=== PATIENT | male | born 1960 | race Asian ===

== ENCOUNTER 2020-01-20 18:50 | Inpatient (IN) | payer MEDICARE, OTHER ==
[~2020-01-20] VITALS: Ht 160 cm; Wt 58.1 kg
[2020-01-20 19:40] LABS: BASOPHILS % (AUTO) 0.5 % (0.0-2.0); EOSINOPHILS # (AUTO) 0.3 K/uL (0.0-0.7); HEMATOCRIT 40.8 % (36.7-47.1); HEMOGLOBIN 13.4 g/dL (12.5-16.3); LYMPHOCYTES # (AUTO) 1.3 K/uL (20.0-40.0); LYMPHOCYTES % (AUTO) 14.7 % (20.5-51.5); MEAN CORPUSCULAR HEMOGLOBIN 30.8 uug (23.8-33.4); MEAN CORPUSCULAR HGB CONC 33 g/dL (32.5-36.3); MEAN CORPUSCULAR VOLUME 93.6 fL (73.0-96.2); MONOCYTES # (AUTO) 0.7 K/uL (2.0-10.0); MONOCYTES % (AUTO) 7.8 % (0.0-11.0); NEUTROPHILS # (AUTO) 6.5 K/uL (1.8-8.9); PLATELET COUNT (AUTO) 281 K/uL (152-348); RED BLOOD CELL COUNT(AUTO) 4.36 MIL/uL (4.06-5.63); WHITE BLOOD COUNT (AUTO) 8.7 K/uL (3.6-10.2)
[2020-01-20 19:49] LABS: CARBON DIOXIDE 33 mmol/L (21-32); CHLORIDE 98 mmol/L (98-107); CREATININE 1.1 mg/dL (0.6-1.3); GLUCOSE 154 mg/dL (74-106); POTASSIUM 4.6 mmol/L (3.5-5.1); UREA NITROGEN, BLOOD 24 mg/dL (7-18)
[2020-01-20 19:54] LABS: ALANINE AMINOTRANSFERASE 15 U/L (16-63); ALKALINE PHOSPHATASE 164 U/L (50-136); ASPARTATE AMINOTRANSFERASE 20 U/L (15-37); BILIRUBIN,DIRECT 0.3 mg/dL (0.0-0.2); ETHANOL < 3 MG/DL (0-0)
--- NOTE | 2020-01-20 19:55 | NUR ---
Patient has been medically cleared by Dr. Solis
[2020-01-20 20:00] VITALS: BP 122/80
[2020-01-20 20:04] LABS: THYROID STIMULATING HORMONE 4.892 mIU/mL (0.358-3.740)
--- NOTE | 2020-01-20 20:30 | NUR ---
[place] [facility] [place] [facility]
[2020-01-20] MEDS ORDERED: MAG HYDROX/AL HYDROX/SIMETH 30 ML LIQUID UDC PO PRN (21:15)
[2020-01-20] MEDS ORDERED: ACETAMINOPHEN 325 MG TABLET PO PRN (21:15)
[2020-01-20] MEDS ORDERED: MAGNESIUM HYDROXIDE 30 ML LIQUID UDC PO PRN (21:15)
[2020-01-20] MEDS ORDERED: ZOLPIDEM 5 MG TABLET PO PRN (21:15)
[2020-01-20] MEDS: LORAZEPAM 0.5 MG TABLET PO PRN (22:05)
--- NOTE | 2020-01-20 22:15 | NUR ---
GPS ADMISSION NOTE: AT APPROX. 2019, ADMITTED 59 YEARS OLD MALE TO [facility] ON A 5150 HOLD FOR DTS. PER HOLD, PATIENT IS HOMELESS. HE WAS FOUND BY [facility] SECURITY TRESPASSING ON THE [facility] RED LINE. UPON INTERVIEW, HE STATED THAT HE IS EXPERIENCING SI WITH A PLAN TO JUMP INTO THE TRACKS AND BE HIT BY A TRAIN. PATIENT WAS THEN TAKEN TO [facility] WHERE HE WAS PUT ON HOLD, AND MEDICALLY CLEARED FOR ADMISSION TO A GEROPSYCH UNIT. UPON ADMISSION, PATIENT NOTED A/O X 3, ABLE TO AMBULATE WITH STEADY GAIT AND ABLE TO VERBALIZED FEELINGS, PATIENT WAS ABLE TO SIGN HIS ADMISSION PAPERS. UPON INTERVIEW, PATIENT STATED THAT HE HAS BEEN FEELING DEPRESSED D/T LOSING HIS [address]ART[address], BEING HOMELESS AND HAVING TO DEAL WITH PAIN; SO, HE DECIDED TO KILL HIMSELF. PATIENT ADDED THAT HE HAD ANOTHER SUICIDAL ATTEMPT IN 1980 BY OD ON PILLS. PATIENT STATED THAT HE DOES NOT HAVE ANY FAMILY, NEVER BEEN , NO CHILDREN. PATIENT NOTED WITH LOW MOOD, CRYING SPELLS, AND HYPERVERBAL. FACE TO FACE ASSESSMENT WAS DONE, PATIENT REFLECT WAS IS WRITTEN ON THE HOLD; HOWEVER, HE IS ABLE TO CFS. HIS ADVISEMENT WAS GIVEN WELL HIS "PATIENT RIGHTS FOR MENTAL HEALTH FACILITY BOOKLET WAS GIVEN. PATIENT WAS EDUCATED ON FACILITY RULES, ROOM AND ROOM MATES. A SHOWER WAS PROVIDED WELL FOOD AND DRINKS. DR LA WAS NOTIFIED OF PATIENT'S ADMISSION TO MHU AND AN ATIVAN 0.5MG PO PRN WAS GIVEN FOR ANXIETY. WE WILL CONTINUE TO MONITOR CLOSELY.
--- NOTE | 2020-01-21 06:19 | NUR ---
PATIENT SLEPT FOR APPROX. 6.30 HRS. THROUGH THE NIGHT, PATIENT ABLE TO VERBALIZED FEELING, CONTINUE HYPERVERBAL. HE STATED THAT HE HAD A NERVE BREAKDOWN FEW YEARS AGO AND SINCE THEN, HE HAS BEEN DEPRESSED. HE STATED THAT HE DOES NOT DRINK ALCOHOL, BUT HE USE DRUGS WHEN HE HAS EXTRA MONEY. PATIENT IS ABLE TO CFS. WILL CONTINUE TO MONITOR.
[2020-01-21] MEDS: LORAZEPAM 0.5 MG TABLET PO PRN (06:43)
[2020-01-21] MEDS: NICOTINE 21 MG/24HR PATCH TD SCH (09:22)
--- NOTE | 2020-01-21 11:09 | NUR ---
SW Initial Discharge Note: Patient is currently homeless and will need alternate placement upon discharge. Patient agrees to go to a long term upon discharge. SW will continue to work with patient and MD to ensure a safe and proper discharge plan.
[2020-01-21] MEDS: risperiDONE 1 MG TABLET PO SCH ×2 (13:32→17:54)
[2020-01-21] MEDS: ATORVASTATIN 10 MG TABLET PO SCH (20:04)
[2020-01-21] MEDS: DIVALPROEX SPRINKLE 125 MG CAP.SPRINK PO SCH (20:04)
[2020-01-22 07:30] VITALS: BP 107/63
[2020-01-22] MEDS: NICOTINE 21 MG/24HR PATCH TD SCH (08:39)
[2020-01-22] MEDS: DIVALPROEX SPRINKLE 125 MG CAP.SPRINK PO SCH ×2 (08:39→20:16)
[2020-01-22] MEDS: PAROXETINE HCL 10 MG TABLET PO SCH (08:39)
[2020-01-22] MEDS: risperiDONE 1 MG TABLET PO SCH ×2 (08:39→17:25)
[2020-01-22] MEDS: LORAZEPAM 0.5 MG TABLET PO PRN ×2 (11:48→18:40)
--- NOTE | 2020-01-22 12:38 | NUR ---
GPS/RN: PT A/O X2, VERBALLY RESPONSIVE BUT DISORGANIZED THINKING, AGGRESSIVE AND ANXIOUS WITH MOST EVERYTHING. PT CONSTANTLY WAKING TO NURSING STATION ASKING FOR CLOTHS AND JACKET WITH PRESSURE SPEECH AND ANGRY. ROUTINE MEDICATIONS WAS GIVEN AND PT COOPERATIVE. AT ABOUT 1100 PT WAS NOTED WITH FECES ON HIS UNDERWEAR AND TRYING TO DUMP THE WASTE ON THE FLOOR, PT WAS REDIRECTED AND ASKED TO GO TO THE RESTROOM FOR CLEAN UP BUT HE REFUSED. PT BECOME ANGRY, YELLING AND UNABLE TO REDIRECT. SECURITY WAS CALLED, PT WAS THAN ASSISTED TO SHOWER AND CLEANED UP. ATIVAN PRN WAS ADMINISTERED AT 1150. NOTED SOME EFFECTIVENESS BUT STILL WALKING IN HALLWAY AND USING PRESSURE SPEECH WHEN TALKING, LOUD ON AND OFF. WILL MONITOR.
[2020-01-22] MEDS: ATORVASTATIN 10 MG TABLET PO SCH (20:16)
[2020-01-22 20:26] VITALS: BP 110/70
--- NOTE | 2020-01-23 07:54 | NUR ---
GPS: received patient pacing in the hallway with FWW, patient is needy asking for coffee, found sitting on the hallway floor , redirected, however patient still wants to sit by the nurse station, offered lyndsey chair , patient say ok, , patient refused VS until he gets his coffee, will continue monitor
[2020-01-23] MEDS: PAROXETINE HCL 10 MG TABLET PO SCH (09:00)
[2020-01-23] MEDS: NICOTINE 21 MG/24HR PATCH TD SCH ×2 (09:00→13:17)
[2020-01-23] MEDS: DIVALPROEX SPRINKLE 125 MG CAP.SPRINK PO SCH ×3 (09:00→20:05)
[2020-01-23] MEDS: risperiDONE 1 MG TABLET PO SCH ×2 (09:00→16:03)
--- NOTE | 2020-01-23 09:00 | NUR ---
GPS:patient refused his medication, verbalizes that he will only take it if he gets caffeinated coffee, patient educated that its not allowed to have caffeine with medication, patient refused meds will continue monitor
--- NOTE | 2020-01-23 16:33 | NUR ---
patient approach the nurse station asking for cough medication,patient says he was coughing in his room, called and spoke with GLOVE FINISHER Jim, orders made and carried out, patient sits in lyndsey chair and likes to listen to music
[2020-01-23] MEDS ORDERED: GUAIFENESIN/DEXTROMETHORPHAN 5 ML UDC PO PRN (16:45)
--- NOTE | 2020-01-23 16:55 | NUR ---
patient sitting on lyndsey chair, comply with his medication, patient asked for ice cream with his dinner tray, patient then starts talking to himself he said he do it all the time, patient remain calm in his chair
[2020-01-23] MEDS: ATORVASTATIN 10 MG TABLET PO SCH (20:05)
[2020-01-23 20:47] VITALS: BP 116/70
--- NOTE | 2020-01-24 06:16 | NUR ---
GPS: Pt.slept for only 3 hrs.last night. Refused Ambien 5mg PO when offered around midnight for sleep. Anxious,needy but re-directable. No aggressive behavior/verbalization of wanting to noted. Re-assured prn.
[2020-01-24] MEDS: NICOTINE 21 MG/24HR PATCH TD SCH (09:03)
[2020-01-24] MEDS: risperiDONE 1 MG TABLET PO SCH ×3 (09:03→17:00)
[2020-01-24] MEDS: DIVALPROEX SPRINKLE 125 MG CAP.SPRINK PO SCH ×2 (09:03→21:00)
--- NOTE | 2020-01-24 14:58 | NUR ---
GPS: Patient seen walking in the hallway. Disturb and dominating. Patient ask coffee in the morning after drinking one cup. Bargain to take the medicine but provide coffee to him. Patient redirect with goood effect. Patient seen sitting on the side in the hallway. Continue asking for coffee. Reducate and reorient the patient with good effect. no complaint of pain/discomfort. Patient is compliant with medicine. will continue monitor
[2020-01-24 16:00] VITALS: BP 124/83
--- NOTE | 2020-01-24 17:56 | NUR ---
Patient refuse 5pm medicine despite of encouragement and education.
[2020-01-24 20:57] VITALS: BP 112/75
[2020-01-24] MEDS: ATORVASTATIN 10 MG TABLET PO SCH (21:00)
--- NOTE | 2020-01-24 23:45 | NUR ---
RECEIVED PATIENT STANDING IN HIS ROOM WITH THE FWW AND TALKING TO HIMSELF. HE LATER CAME OUT WALKING THE HALLWAY AND SAT ON THE FLOOR. WHEN REDIRECTED BACK TO HIS ROOM HE REFUSED SAYING "I CAN'T WALK'. SEVERAL ATTEMPTS WERE MADE TO RE DIRECT BACK TO HIS ROOM BUT HE KEPT YELLING ON AND OFF SAYING ' GET ME BLACK SHIRTS AND PANTS BEFORE I WILL GO'. 2 SECURITY MEN WERE CALLED AND THEY ESCORTED HIM TO HIS ROOM.HE IS ALSO NON MEDICATION COMPLIANT.RISK AND BENEFITS EXPLAINED X 3 BUT ALL HE SAID WAS "CALL MY DOCTOR'.EASILY ANGERED AND IRRITABLE.WILL CONTINUE TO MONITOR.
--- NOTE | 2020-01-25 06:22 | NUR ---
SLEPT FOR ONLY 2;30HOURS. KEPT GETTING UP AND PACING THE HALLWAY AND REQUESTING FOR A DIAPER EVERY TIME. HE IS NON MED COMPLIANT.
[2020-01-25 07:44] VITALS: BP 106/73
[2020-01-25] MEDS: DIVALPROEX SPRINKLE 125 MG CAP.SPRINK PO SCH ×3 (08:56→16:44)
[2020-01-25] MEDS: NICOTINE 21 MG/24HR PATCH TD SCH (08:57)
[2020-01-25] MEDS: risperiDONE 1 MG TABLET PO SCH ×2 (08:57→16:44)
--- NOTE | 2020-01-25 11:25 | NUR ---
RAVIN Discharge Planning: RAVIN faxed patient's referral packet for review and possible placement to [facility] ( fax: [phone]) attention to Francesca. Addendum: 01/26/20 at 0910 by THANIA WHITLEY Patient is not accepted to facility due to "no skilled need" according to Tye at the facility.
[2020-01-25] MEDS: LORAZEPAM 0.5 MG TABLET PO PRN (11:39)
--- NOTE | 2020-01-25 11:40 | NUR ---
RAVIN Discharge Planning: RAVIN faxed patient's referral packet for review and possible placement to [facility] [place] ( fax: [phone]) attention to
--- NOTE | 2020-01-25 13:00 | NUR ---
RAVIN Brief Individual Counseling: school social worker met with patient and provided brief individual counseling to address the patient's presenting problem, suicidal ideation. Patient presented calm and pleasant, sitting in his room. SW assessed patient's level of suicidality. Patient was not listening and kept asking "when am I getting out of here" "I wanna go home". SW redirected the patient ans stated that he does not have a home to go to. Patient became agitated and stated that he lost his [address] 8 apartment. SW helped patient understand his current situation and stated that this bond writer will look for a fpc for the patient. Patient agreed to this. Patient then stated that he is feeling depressed but does not want to kill himself. SW encouraged patient to continue to share his feelings with this bond writer, nursing or with peers in group.
--- NOTE | 2020-01-25 19:08 | NUR ---
Patient complaint on medication. Patient needy noted. Patient asking tea or coffee most of the time. Patient get agitated when needs not given. Ativan 0.5mg given for anxiety PRN given. Patient education given with fair effect. Ativan 0.5mg given for anxiety given with good effect. will continue monitor
[2020-01-25 19:59] VITALS: BP 110/66
[2020-01-25] MEDS: ATORVASTATIN 10 MG TABLET PO SCH (20:31)
--- NOTE | 2020-01-26 00:01 | NUR ---
GPS/RN: PT A/OX3, DENIED SI, NO PLAN OF HARTING SELF AND PEERS. PT NOTED WITH EASILY AGITATED AND NEEDY, COMPLAINING ON EVERYTHING INCLUDING CLOTHS, SNACKS AND SO FORTH. PT WAS REDIRECTED AND REALITY ORIENTED. WAS EFFECTIVE AND ABLE TO FOLLOW DIRECTION. FREQUENT REDIRECTION DONE AND ENCOURAGED TO VENT FEELINGS IN A MORE CALM APPROPRIATE MANNER. PT COOPERATIVE WITH MEDS, AND TOOK SHOWER DURING NIGHT. ANTICIPATED ALL NEEDS AND NOW ASLEEP WITH Q/15MINS HEAD CHECK ONGOING.
[2020-01-26 08:08] VITALS: BP 109/71
[2020-01-26] MEDS: DIVALPROEX SPRINKLE 125 MG CAP.SPRINK PO SCH ×3 (08:34→17:31)
[2020-01-26] MEDS: NICOTINE 21 MG/24HR PATCH TD SCH (08:35)
[2020-01-26] MEDS: risperiDONE 1 MG TABLET PO SCH ×2 (08:35→17:33)
--- NOTE | 2020-01-26 09:26 | NUR ---
RAVIN Discharge Planning: SW Faxed patient's referral packet for review and possible placement with attention to Tye to the following facilities; [facility] ([phone]), [facility] ([phone]), [facility] ([phone]), [facility] ([phone]).
--- NOTE | 2020-01-26 12:59 | NUR ---
Brief Substance Abuse Intervention: Patient was provided with a brief substance abuse intervention and referred to the following substance abuse programs: [facility] Substance Abuse Self-helpline ([phone]); [facility] [address] [place] [address] ([phone]); [facility] [address] [facility] [address] ([phone]); [facility] ([phone]); [facility] ([phone]); [facility] ([phone]); [facility] ([phone]).
[2020-01-26 16:00] VITALS: BP 127/77
[2020-01-26 20:08] VITALS: BP 121/75
[2020-01-26] MEDS: ATORVASTATIN 10 MG TABLET PO SCH (21:00)
--- NOTE | 2020-01-26 22:41 | NUR ---
PATIENT RECEIVED SITTING UP IN BED. PATIENT LABILE TO STAFF. PATIENT REFUSED MEDICATION. PATIENT IS EASILY IRRITABLE WHEN HE DOES NOT GET HIS WAY. NO AGGRESSIVE OR COMBATIVE BEHAVIOR NOTED WILL CONTINUE TO MONITOR AND REDIRECT NEEDED.
[2020-01-27] MEDS: risperiDONE 1 MG TABLET PO SCH ×2 (09:39→16:29)
[2020-01-27] MEDS: NICOTINE 21 MG/24HR PATCH TD SCH (09:39)
[2020-01-27] MEDS: DIVALPROEX SPRINKLE 125 MG CAP.SPRINK PO SCH ×3 (09:39→16:28)
--- NOTE | 2020-01-27 17:00 | NUR ---
Gps/Team Facilitator- Ambulates around uses front wheel walker, noted bladder incontinence, encouraged to go to the bathroom , requesting diaper, independence w/ adls , encouraged. Had been compliant with routine medications, min. prompting, patient always asking for tea , adequate intake. Attended part of his group therapy, but less participation noted.
[2020-01-27 20:00] VITALS: BP 131/74
--- NOTE | 2020-01-27 20:00 | NUR ---
RECEIVED PATIENT IN THE HALLWAY. HE IS NOTED A/O X 3. CALM AND PLEASANT UPON APPROACHED. PT IS REDIRECTABLE. COOPERATIVE AT THIS TIME. HE DENIED SI/HI/VH/AH. HE IS ABLE TO CFS. HE IS REASSURED FOR HIS SAFETY. SAFETY AND FALL PRECAUTION IN PLACE. V/S STABLE. WILL CONTINUE TO MONITOR.
[2020-01-27] MEDS: ATORVASTATIN 10 MG TABLET PO SCH (20:39)
[2020-01-28 07:30] VITALS: BP 107/74
[2020-01-28] MEDS: NICOTINE 21 MG/24HR PATCH TD SCH (08:07)
[2020-01-28] MEDS: DIVALPROEX SPRINKLE 125 MG CAP.SPRINK PO SCH ×3 (08:08→16:10)
[2020-01-28] MEDS: risperiDONE 1 MG TABLET PO SCH ×2 (08:08→16:10)
--- NOTE | 2020-01-28 11:12 | NUR ---
Gps/Senior Software Qa Engineer- Showered self ind. after set up, noted bowel incontinence. Patient was well informed the need to have Covid test today in prep. for discharged planning. When about to do covid testing, pt. gets agiated, crying refusing to have the test done, claimed he does not want the swab stick to go to his nose that far, explained to patient the proper way to do the testing, pt. was yelling loud, claimed test is painful. pt. was reassured. Covid test finally done, pt. agrees, scanty nose bleeding noted, cold compressed encouraged.
--- NOTE | 2020-01-28 11:44 | NUR ---
SW Brief Individual Counseling: wafer polishing lead worker met with patient and provided brief individual counseling to address the patient's presenting problem, suicidal ideation. Patient continues to present with labile mood and congruent affect. SW attempted to assess for level of suicidality and patient states "Yea I am feeling depressed". SW provided supportive counseling and acknowledged the patient's feelings and explored alternate coping skills with the patient. Patient was not very receptive, patient was blaming society and the community. patient appeared to be taking blame off himself for his current situation. wafer polishing lead worker explored patients negative feelings towards society and how it impacts his life. Patient became emotional and stated that "he has no one in his life". wafer polishing lead worker listened and supported patient. SW encouraged patient to continue to join group and interact with peers.
--- NOTE | 2020-01-28 11:53 | NUR ---
Social Work Firearms Report ([employer]): Cotton Broker completed and submitted a [employer] firearms report for 5250 grave disability certification. A copy of report has been placed in patient chart.
[2020-01-28 15:03] VITALS: BP 111/66
--- NOTE | 2020-01-28 18:04 | NUR ---
Gps/Rough Carpenter- Had been quiet this pm, stayed in the activity room ,min. interactions, making needs known. Discharged planning for friday to [place] as arranged by SW, pending results of Covid test .
[2020-01-28 20:27] VITALS: BP 116/68
[2020-01-28] MEDS: ATORVASTATIN 10 MG TABLET PO SCH (20:46)
--- NOTE | 2020-01-29 04:50 | NUR ---
GPS/BUILDING CARPENTER: REMAIN CALM AND COOPERATIVE WITH MEDS AND CARE. PATIENT IS A/O X 3. PLESANT UPON APPROACHED, DENIED SI/HI/VH/AH. REASSURED FOR HIS SAFETY. V/S STABLE. WILL CONTINUE TO MONITOR.
--- NOTE | 2020-01-29 06:28 | NUR ---
slept 8 hrs through the night.
[2020-01-29 07:56] VITALS: BP 113/77
[2020-01-29] MEDS: risperiDONE 1 MG TABLET PO SCH ×2 (08:30→17:30)
[2020-01-29] MEDS: DIVALPROEX SPRINKLE 125 MG CAP.SPRINK PO SCH ×3 (08:30→17:29)
[2020-01-29] MEDS: NICOTINE 21 MG/24HR PATCH TD SCH (08:30)
[2020-01-29 16:26] VITALS: BP 115/69
[2020-01-29 20:00] VITALS: BP 109/71
[2020-01-29] MEDS: ATORVASTATIN 10 MG TABLET PO SCH (21:00)
--- NOTE | 2020-01-30 04:14 | NUR ---
Received patient while walking around with walker. No acute distress or SOB was noted. Refused his schedule Lipitor 10 mg tab. Safety measures maintained. Discharged planning in progress for Friday to [facility]. Continue to monitor.
[2020-01-30 07:30] VITALS: BP 122/81
[2020-01-30] MEDS: risperiDONE 1 MG TABLET PO SCH ×2 (08:11→16:51)
[2020-01-30] MEDS: DIVALPROEX SPRINKLE 125 MG CAP.SPRINK PO SCH ×3 (08:12→16:52)
[2020-01-30] MEDS: NICOTINE 21 MG/24HR PATCH TD SCH (08:12)
[2020-01-30 16:00] VITALS: BP 110/72
--- NOTE | 2020-01-30 18:43 | NUR ---
patient has discharged planning in progress for Friday to [facility] , had been compliant with all care and medication .
[2020-01-30 20:11] VITALS: BP 113/69
[2020-01-30] MEDS: ATORVASTATIN 10 MG TABLET PO SCH (20:27)
--- NOTE | 2020-01-31 06:36 | NUR ---
GPS/STOKER ERECTOR: REMAIN CALM AND COOPERATIVE WITH MEDS AND CARE. PATIENT IS A/O X 3. PLEASANT UPON APPROACHED, DENIED SI/HI/VH/AH. REASSURED FOR HIS SAFETY. SLEPT 4 HRS THROUGH THE NIGHT. WILL CONTINUE TO MONITOR.
[2020-01-31 08:11] VITALS: BP 113/76
[2020-01-31] MEDS: DIVALPROEX SPRINKLE 125 MG CAP.SPRINK PO SCH ×2 (08:12→12:09)
[2020-01-31] MEDS: NICOTINE 21 MG/24HR PATCH TD SCH (08:12)
[2020-01-31] MEDS: risperiDONE 1 MG TABLET PO SCH (08:12)
--- NOTE | 2020-01-31 09:23 | NUR ---
SW Discharge Note: [facility] [address] [place] [address] ([phone]) via Ambulance transportation at 1:00pm today. Support Team Member spoke with Bari, Emt/Dispatcher at [facility] ([phone]), and he confirmed that patient will be accepted at their facility today. Patient does not have any family or next of kin contacts at this time. Patient is alert and oriented x4. Patient is not able to plan for self-care at this time but is willing to accept care provided for her at the facility. Patient denies suicidal or homicidal ideation. Patient is aware and agreeable with discharge plans. Patient presents with appropriate mood and congruent affect. Patient will follow-up with Psychiatrist Dr. Patel and Shop Lead Dr. Carrington at [facility]. Patient was provided with a brief substance abuse intervention and referred to the following substance abuse programs: [facility] Substance Abuse Self-helpline ([phone]); [facility] [address] [place] [address] ([phone]); [address] [address] ([phone]); [facility] ([phone]); [facility] ([phone]); [facility] ([phone]); [facility] ([phone]). Patient signed the homeless waiver upon discharge and a copy was placed in the chart. Homeless resources were provided and include [address] line for shelters and homeless resources. A copy of all resources given to patient was also placed in the chart.
--- NOTE | 2020-01-31 11:34 | NUR ---
[facility] at 1:30 pm today. report given to Min BAILEY, patient is A/O x3 ambulating self care,vital sign stable.personal belonging given to patient.
== END 2020-01-31 13:45 | DRG 885 ==
LOC: ER 18:50 → GPS 20:11
PROVIDERS: ADMIT Psychiatry & Neurology Psychiatry; ATTEND Nurse Practitioner Acute Care
DX: F31.64 Bipolar disorder, current episode mixed, severe, with psychotic features (principal); E03.9 Hypothyroidism, unspecified; E78.5 Hyperlipidemia, unspecified; I50.9 Heart failure, unspecified; Z59.0 Homelessness; R53.1 Weakness; F29 Unspecified psychosis not due to a substance or known physiological condition; R79.89 Other specified abnormal findings of blood chemistry
CPT/HCPCS: 36415; 70030-TC; 71045; 84443; 85025; 85730; 93005; A4663; G0480; U0003-CS